=== PATIENT | male | born 1995 | race Asian ===

== ENCOUNTER 2017-11-04 20:06 | Emergency (ER) | payer OTHER ==
[2017-11-04] MEDS ORDERED: ONDANSETRON 4 MG ORAL DISINTEGRATING TAB (S0181) PO (21:00)
[2017-11-04] MEDS ORDERED: MORPHINE 4 MG/ML 1ML VIAL (J2270) IM (21:00)
[2017-11-04] MEDS: fentaNYL 100 MCG/2 ML INJECTION (J3010) IV (21:39)
[2017-11-04] MEDS: PROPOFOL 200 MG/20 ML VIAL IV (21:39)
== END 2017-11-04 23:14 | disposition home or self-care (01) ==
LOC: M ED 20:06
DX: S43.002A Unspecified subluxation of left shoulder joint, initial encounter (principal); X50.9XXA Other and unspecified overexertion or strenuous movements or postures, initial encounter; Y92.310 Basketball court as the place of occurrence of the external cause; Y93.67 Activity, basketball
CPT/HCPCS: J3010

== ENCOUNTER 2017-11-10 18:23 | Emergency (ER) | payer OTHER ==
[2017-11-10] MEDS: PERMETHRIN 5% CREAM 60 GM TOP (23:00)
== END 2017-11-10 23:01 | disposition home or self-care (01) ==
LOC: M ED 18:23
DX: B86 Scabies (principal)
CPT/HCPCS: 99282

== ENCOUNTER 2017-12-16 18:30 | Emergency (ER) | payer OTHER ==
[2017-12-16] MEDS: methylPREDNISolone INJ 125 MG/2 ML VIAL (J2930) IM (21:51)
== END 2017-12-16 22:14 | disposition home or self-care (01) ==
LOC: M ED 18:30
DX: R21 Rash and other nonspecific skin eruption (principal); Z79.899 Other long term (current) drug therapy; Z91.012 Allergy to eggs; Z91.018 Allergy to other foods
CPT/HCPCS: J2930

== ENCOUNTER 2019-11-02 04:03 | Emergency (ER) | payer OTHER ==
[~2019-11-02] VITALS: Ht 162.6 cm; Wt 67.3 kg
[~2019-11-02 04:03] MED LIST: BENA25CA4 PO; ELIM5CRE2 TOP; HYDR25OIN TOP; IBUP200C25 PO; PRED20TA PO
[2019-11-02] MEDS ORDERED: ZYRTTAB8 PO (04:12)
[2019-11-02] MEDS ORDERED: ACETAMINOPHEN 325 MG TAB PO ONE (04:15)
[2019-11-02 04:57] LABS: INFLUENZA A AMPLIFICATION NEGATIVE (NEGATIVE); INFLUENZA B AMPLIFICATION POSITIVE (NEGATIVE)
[2019-11-02] MEDS ORDERED: OSELTAMIVIR PHOSPHATE 75 MG CAP (TAMIFLU) PO ONE ×2 (05:15→06:30)
[2019-11-02] MEDS ORDERED: IBUPROFEN 800 MG TAB PO ONE (05:15)
[2019-11-02] MEDS ORDERED: KETO10TAB PO (06:30)
[2019-11-02] MEDS ORDERED: OSEL75CA PO (06:30)
[2019-11-02] MEDS ORDERED: KETOROLAC 60 MG/2 ML VIAL (J1885) IM ONE (06:30)
[2019-11-02 07:04] VITALS: BP 129/59
--- NOTE | 2019-11-02 07:50 | REP ---
Clinical: Fever . Comparison: None . Technique: PA and lateral. Findings: The mediastinum and cardiac silhouette are normal. The lung snow are clear and without acute consolidation, effusion, or pneumothorax. The skeletal structures are intact and normal. Impression: 1. No focal consolidation. Electronically Signed by Sharath Daniel MD 11/02/2019 07:41 A
== END 2019-11-02 07:05 | disposition home or self-care (01) ==
LOC: M ED 04:03
DX: J10.1 Influenza due to other identified influenza virus with other respiratory manifestations (principal); Z91.018 Allergy to other foods; Z91.012 Allergy to eggs